=== PATIENT | female | born 1980 | race African-American/Black ===

== ENCOUNTER 2017-03-03 17:15 | Emergency (ER) | payer SELFPAY ==
[~2017-03-03] VITALS: Ht 162.6 cm; Wt 79.4 kg
[2017-03-03 17:38] VITALS: BP 118/60
[2017-03-03 17:43] LABS: BILIRUBIN,URINE NEGATIVE (NEG); GLUCOSE,URINE NEGATIVE (NEG); NITRITE,URINE NEGATIVE (NEG); PH,URINE 8.5; PROTEIN,URINE 30 mg/dL (NEG-TRACE)
--- NOTE | 2017-03-03 17:51 | PHYS DOC ---
Past Medical History Past Medical History: No Pertinent History Past Surgical History: Tubal ligation Alcohol Use: Occasionally Drug Use: None Adult General Chief Complaint Chief Complaint: VAGINAL PROBLEM HPI HPI Patient is a 37 year old female presents to the emergency department with a two -month history of lower abdominal pain with vaginal discharge. She states the vaginal discharge is malodorous. She states the pain was gone progressively worse. She denies fever, nausea, vomiting. She states that she's had spotting in between her last normal menstrual period in today's visit. Review of Systems Review of Systems Constitutional: Denies fever or chills [] Eyes: Denies change in visual acuity, redness, or eye pain [] HENT: Denies nasal congestion or sore throat [] Respiratory: Denies cough or shortness of breath [] Cardiovascular: No additional information not addressed in HPI [] GI: Denies abdominal pain, nausea, vomiting, bloody stools or diarrhea [] : Vaginal discharge Musculoskeletal: Denies back pain or joint pain [] Integument: Denies rash or skin lesions [] Neurologic: Denies headache, focal weakness or sensory changes [] Endocrine: Denies polyuria or polydipsia [] Allergies Allergies Allergies Coded Allergies Type Severity Reaction Last Updated Verified No Known Drug Allergies 08/20/14 No Physical Exam Physical Exam Constitutional: Well developed, well nourished, no acute distress, non-toxic appearance. [] HENT: Normocephalic, atraumatic, bilateral external ears normal, oropharynx moist, no oral exudates, nose normal. [][] Cardiovascular:Heart rate regular rhythm, no murmur [] Lungs & Thorax: Bilateral breath sounds clear to auscultation [] Abdomen: Bowel sounds normal, soft, no tenderness, no masses, no pulsatile masses. : Sternal genitalia within normal limits, small amount of malodorous discharge, cervix without cervicitis, OS closed, no cervical motion tenderness , no adnexal fullness or tenderness. Small amount of [] Skin: Warm, dry, no erythema, no rash. [] Back: No tenderness, no CVA tenderness. [] Extremities: No tenderness, no cyanosis, no clubbing, ROM intact, no edema. [] Neurologic: Alert and oriented X 3, normal motor function, normal sensory function, no focal deficits noted. [] Psychologic: Affect normal, judgement normal, mood normal. [] Current Patient Data Vital Signs Vital Signs Date Time Temp Pulse Resp B/P (MAP) Pulse Ox O2 Delivery O2 Flow Rate FiO2 03/03/17 17:38 98.9 85 18 99 Room Air 98.9 Lab Values Laboratory Tests Test 03/03/17 16:43 03/03/17 17:33 POC Urine HCG, Qualitative Hcg negative (Negative) Urine Collection Type Unknown Urine Color Yellow Urine Clarity Clear Urine pH 8.5 Urine Specific [place] 1.020 Urine Protein 30 mg/dL (NEG-TRACE) Urine Glucose (UA) Negative mg/dL (NEG) Urine Ketones (Stick) Trace mg/dL (NEG) Urine Blood Negative (NEG) Urine Nitrite Negative (NEG) Urine Bilirubin Negative (NEG) Urine Urobilinogen Dipstick 1.0 mg/dL (0.2 mg/dL) Urine Leukocyte Esterase Negative (NEG) Urine RBC 0 /HPF (0-2) Urine WBC 0 /HPF (0-4) Urine Squamous Epithelial Cells Few /LPF Urine Bacteria 0 /HPF (0-FEW) Urine Mucus Mod /LPF EKG EKG [] Radiology/Procedures Radiology/Procedures [] Course & Med Decision Making Course & Med Decision Making Pertinent Labs and Imaging studies reviewed. (See chart for details) [] Dragon Disclaimer Dragon Disclaimer This electronic medical record was generated, in whole or in part, using a voice recognition dictation system. Departure Departure Impression: Primary Impression: Bacterial vaginosis Disposition: HOME, SELF-CARE Condition: STABLE Referrals: NO PCP (PCP) [facility] Patient Instructions: Bacterial Vaginosis Scripts Metronidazole (FLAGYL) 500 Mg Tablet 1 TAB PO BID, #14 TAB Prov: FERMIN RIGGS APRN 03/03/17 FERMIN RIGGS APRN Mar 03, 2017 17:51
[2017-03-03 18:02] LABS: BACTERIA,URINE 0 /HPF (0-FEW); RBC,URINE 0 /HPF (0-2); SQUAMOUS EPITHELIAL CELL,UR FEW /LPF; WBC,URINE 0 /HPF (0-4)
[2017-03-03] MEDS ORDERED: METR500T PO (18:30)
== END 2017-03-03 18:34 | disposition home or self-care (01) ==
LOC: ER 17:15
DX: N76.0 Acute vaginitis (principal); Z98.51 Tubal ligation status
CPT/HCPCS: 81001; 81025; 99283

== ENCOUNTER 2017-11-10 23:02 | Emergency (ER) | payer SELFPAY ==
[2017-11-10 23:32] LABS: URINE HCG POC HCG NEGATIVE (Negative)
[2017-11-11 01:33] LABS: AGAP ISTAT 15 mmol/L (6-14); BUN ISTAT 9 mg/dL (8-26); CHLORIDE ISTAT 103 mmol/L (98-110); CREATININE ISTAT 0.6 mg/dL (0.5-1.4); GLUCOSE ISTAT 97 mg/dL (70-99); HEMATOCRIT ISTAT 36 % (36-40); HEMOGLOBIN ISTAT 12.2 g/dL (12-15); ION CA ISTAT 1.19 mmol/L (1.13-1.32); POTASSIUM ISTAT 3.3 mmol/L (3.5-5.0); SODIUM ISTAT 140 mmol/L (135-145); TOT CO2 ISTAT 27 mmol/L (23-32)
[2017-11-14 15:27] LABS: CHLAMYDIA PROBE Positive (Negative); GC PROBE Negative (Negative)
== END 2017-11-11 01:40 | disposition home or self-care (01) ==
LOC: ER 11-11 01:40
DX: N92.1 Excessive and frequent menstruation with irregular cycle (principal); Z98.51 Tubal ligation status
CPT/HCPCS: 36415; 80047; 81025; 85014; 85018; 87491; 87591; 99284; Q0111

== ENCOUNTER 2018-02-25 13:38 | Emergency (ER) | payer SELFPAY ==
[~2018-02-25] VITALS: Ht 167.6 cm; Wt 83.9 kg
[~2018-02-25 13:38] MED LIST: METR500T PO
[2018-02-25 13:50] VITALS: BP 124/66
--- NOTE | 2018-02-25 14:12 | PHYS DOC ---
Past Medical History Past Medical History: No Pertinent History Past Surgical History: No Surgical History Alcohol Use: None Drug Use: None Adult General Chief Complaint Chief Complaint: ABSCESS HPI HPI Patient is a 38 year old female who presents with an abscess on the left thigh from what she believes are ingrown hairs X1 week. Patient denies any fever. Denies any drainage from the area. Review of Systems Review of Systems Constitutional: Denies fever or chills [] Musculoskeletal: Denies back pain or joint pain [] Integument: Reports an abscess to the left thigh Neurologic: Denies headache, focal weakness or sensory changes [] All other systems were reviewed and found to be within normal limits, except as documented in this note. Current Medications Current Medications Current Medications Medications (Trade) Dose Ordered Sig/Anastacia Start Time Stop Time Status Last Admin Dose Admin Diphtheria/ Tetanus/Acell Pertussis (Boostrix) 0.5 ml ONCE ONCE 02/25/18 14:15 02/25/18 14:16 DC 02/25/18 14:24 0.5 ML Lidocaine/Sodium Bicarbonate (Buffered Lidocaine 1%) 3 ml 1X ONCE 02/25/18 14:15 02/25/18 14:16 DC 02/25/18 14:24 3 ML Allergies Allergies Allergies Coded Allergies Type Severity Reaction Last Updated Verified No Known Drug Allergies 08/20/14 No Physical Exam Physical Exam Constitutional: Well developed, well nourished, no acute distress, non-toxic appearance. [] Skin: Left ventral thigh with an none indurated area approximately 1 x 1 cm with surrounding 3 cm of cellulitis. The area is warm tender to touch and fluctuant in the center. Back: No tenderness, no CVA tenderness. [] Extremities: No tenderness, no cyanosis, no clubbing, ROM intact, no edema. [] Neurologic: Alert and oriented X 3, normal motor function, normal sensory function, no focal deficits noted. [] Psychologic: Affect normal, judgement normal, mood normal. [] Current Patient Data Vital Signs Vital Signs Date Time Temp Pulse Resp B/P (MAP) Pulse Ox O2 Delivery O2 Flow Rate FiO2 02/25/18 13:50 99.0 93 18 124/66 (85) 99 Room Air 99.0 EKG EKG [] Radiology/Procedures Radiology/Procedures Indication: abscess of the left thigh Procedure: The patient was positioned appropriately. Local anesthesia was 1% buffered lidocaine. An incision was then made with an 11 blade over the apex of the lesion and mild amount of yellow bloody material was expressed. The drainage cavity was irrigated and covered with sterile gauze. The patients tetanus status updated as needed. The patient tolerated the procedure well. Complications: none. Course & Med Decision Making Course & Med Decision Making Pertinent Labs and Imaging studies reviewed. (See chart for details) Patient has an abscess with cellulitis on the left ventral thigh. Tetanus was updated. The abscess was drained by me as noted in procedures. Patient was discharged on Bactrim. Provided wound care instructions as well as return precautions. Dragon Disclaimer Dragon Disclaimer This electronic medical record was generated, in whole or in part, using a voice recognition dictation system. Departure Departure Impression: Primary Impression: Abscess or cellulitis of thigh Disposition: 01 HOME, SELF-CARE Condition: STABLE Referrals: NO PCP (PCP) follow up with your doctor in one week Patient Instructions: Abscess, Cellulitis, [id number] Additional Instructions: You were seen for an abscess with cellulitis on your left thigh. Please complete your antibiotics. Apply warm compresses to the area twice a day. Follow -up with your doctor in 1-2 weeks. Scripts Tramadol Hcl (TRAMADOL HCL) 50 Mg Tablet 50 MG PO Q6HRS PRN for PAIN, #20 TAB Prov: GABBY PRASAD APRN 02/25/18 Sulfamethoxazole/Trimethoprim (BACTRIM DS TABLET) 1 Each Tablet 1 TAB PO BID, #20 TAB Prov: GABBY PRASAD APRN 02/25/18 GABBY PRASAD APRN Feb 25, 2018 14:12
[2018-02-25] MEDS ORDERED: LIDOCAINE WITH 8.4% SOD BICARB 3 ML DISP.SYRIN. INJ ONE (14:15)
[2018-02-25] MEDS ORDERED: DIPHTH,PERTUSS(ACELL),TET TOX 0.5 ML DISP.SYRIN. VAX IM ONE (14:15)
[2018-02-25] MEDS ORDERED: SULF1TAB24 PO (14:30)
[2018-02-25] MEDS ORDERED: TRAM50TA PO (14:30)
== END 2018-02-25 14:47 | disposition home or self-care (01) ==
LOC: ER 13:38
DX: L02.416 Cutaneous abscess of left lower limb (principal); L03.116 Cellulitis of left lower limb
CPT/HCPCS: 10060; 90471; 90715; 99283

== ENCOUNTER 2021-02-02 10:52 | Emergency (ER) | payer MEDICAID ==
[~2021-02-02] VITALS: Ht 162.6 cm; Wt 69.1 kg
[~2021-02-02 10:52] MED LIST changes: +SULF1TAB24 PO; +TRAM50TA PO
[2021-02-02] MEDS ORDERED: methylPREDNISolone SOD SUCC PF 125 MG/2 ML VIAL. IV ONE (11:30)
[2021-02-02] MEDS ORDERED: KETOROLAC 30 MG/ML VIAL. IVP ONE (11:30)
[2021-02-02] MEDS ORDERED: IV NORMAL SALINE 1000ML BAG 1,000 ML IV ONE (11:30)
[2021-02-02] MEDS ORDERED: ONDANSETRON PF 4 MG/2 ML VIAL. IVP ONE (11:30)
[2021-02-02 11:37] LABS: BASO % 1 % (0-3); EOS # 0.8 x10^3/uL (0.0-0.7); EOS % 17 % (0-3); HEMATOCRIT 41.6 % (36.0-47.0); HEMOGLOBIN 13.6 g/dL (12.0-15.5); LYMPH # 1.6 x10^3/uL (1.0-4.8); LYMPH % 32 % (24-48); MEAN CORPUSCULAR HEMOGLOBIN 26 pg (25-35); MEAN CORPUSCULAR HGB CONC 33 g/dL (31-37); MEAN CORPUSCULAR VOLUME 80 fL (79-100); MONO # 0.2 x10^3/uL (0.0-1.1); MONO % 5 % (0-9); NEUT # 2.4 x10^3/uL (1.8-7.7); NEUT % 47 % (31-73); PLATELET COUNT 142 x10^3/uL (140-400); RED BLOOD COUNT 5.17 x10^6/uL (3.50-5.40); RED CELL DISTRIBUTION WIDTH 12.3 % (11.5-14.5); WHITE BLOOD COUNT 5.1 x10^3/uL (4.0-11.0)
[2021-02-02 12:33] LABS: CALCIUM 8.9 mg/dL (8.5-10.1); CREATININE 0.7 mg/dL (0.6-1.0); GFR 111.6
[2021-02-02 12:39] LABS: ALBUMIN 3.6 g/dL (3.4-5.0); TOTAL BILIRUBIN 0.4 mg/dL (0.2-1.0); TOTAL PROTEIN 7.2 g/dL (6.4-8.2)
[2021-02-02 13:24] LABS: BILIRUBIN,URINE NEGATIVE (NEG); CLARITY,URINE CLEAR; COLOR,URINE YELLOW; NITRITE,URINE NEGATIVE (NEG); PROTEIN,URINE NEGATIVE (NEG-TRACE); UROBILINOGEN,URINE 0.2 mg/dL (0.2 mg/dL)
[2021-02-02 13:31] LABS: BARBITURATES NEG (NEG); BENZODIAZEPINES NEG (NEG); CANNABINOIDS NEG (NEG); COCAINE NEG (NEG); METHADONE NEG (NEG); OPIATES NEG (NEG); PHENCYCLIDINE NEG (NEG)
[2021-02-02 13:32] LABS: AMPHETAMINE/METHAMPHETAMINE NEG (NEG)
[2021-02-02 13:47] LABS: BACTERIA,URINE 0 /HPF (0-FEW); RBC,URINE 0 /HPF (0-2)
[2021-02-02] MEDS ORDERED: SUMA50TA3 PO (14:15)
--- NOTE | 2021-02-02 14:15 | PHYS DOC ---
Past Medical History Past Medical History: No Pertinent History Additional Past Medical Histor: "LOW BLOOD COUNT", FIBROIDS Past Surgical History: Tubal ligation Smoking Status: Never Smoker Alcohol Use: None Drug Use: None General Adult EDM: Chief Complaint: HEADACHE HPI: HPI: Patient is a 41 year old female who presents to the ED today complaining of 5 out of 10 right-sided headache radiating to her neck and back of the head as well as right ear, symptoms began 1-1/2 weeks ago. Patient describes the pain as throbbing and intermittent. States activities exacerbates the pain. Denies any nausea, vomiting. She states she has been running a low "blood count". She states this is due to fibroids and the [employer] MANAGER started her on Depo shots with Lupron. Patient denies any bleeding right now. Denies this being the worst headache in her life. Denies anything specifically relieving the headache. Review of Systems: Review of Systems: Constitutional: Denies fever or chills. [] Eyes: Denies change in visual acuity. [] HENT: Denies nasal congestion or sore throat. [] Respiratory: Denies cough or shortness of breath. [] Cardiovascular: Denies chest pain or edema. [] GI: Denies abdominal pain, nausea, vomiting, bloody stools or diarrhea. [] : Denies dysuria. [] Musculoskeletal: Denies back pain or joint pain. [] Integument: Denies rash. [] Neurologic: Reports headache, denies focal weakness or sensory changes. [] ] Psychiatric: Denies depression or anxiety. [] Heart Score: C/O Chest Pain: N/A Risk Factors: Risk Factors: DM, Current or recent (<one month) smoker, HTN, HLP, family history of CAD, obesity. Risk Scores: Score 0 - 3: 2.5% MACE over next 6 weeks - Discharge Home Score 4 - 6: 20.3% MACE over next 6 weeks - Admit for Clinical Observation Score 7 - 10: 72.7% MACE over next 6 weeks - Early Invasive Strategies Current Medications: Current Medications Medications (Trade) Dose Ordered Sig/Anastacia Start Time Stop Time Status Last Admin Dose Admin Ketorolac Tromethamine (Toradol 30mg Vial) 30 mg 1X ONCE 02/02/21 11:30 02/02/21 11:31 DC 02/02/21 11:39 30 MG Methylprednisolone Sodium Succinate (SOLU-Medrol 125MG VIAL) 125 mg 1X ONCE 02/02/21 11:30 02/02/21 11:31 DC 02/02/21 11:38 125 MG Ondansetron HCl (Zofran) 4 mg 1X ONCE 02/02/21 11:30 02/02/21 11:31 DC 02/02/21 11:39 4 MG Sodium Chloride 1,000 ml @ 1,000 mls/hr 1X ONCE 02/02/21 11:30 02/02/21 12:29 DC 02/02/21 11:38 1,000 MLS/HR Allergies: Allergies: Allergies Coded Allergies Type Severity Reaction Last Updated Verified No Known Drug Allergies 10/29/20 No Physical Exam: PE: Constitutional: Well developed, well nourished, no acute distress, non-toxic appearance. [] HENT: Normocephalic, atraumatic, bilateral external ears normal, oropharynx moist, no oral exudates, nose normal. [] Eyes: PERRLA, EOMI, conjunctiva normal, no discharge. [] Neck: Normal range of motion, no tenderness, supple, no stridor. [] Cardiovascular:Heart rate regular rhythm, no murmur [] Lungs & Thorax: Bilateral breath sounds clear to auscultation [] Abdomen: Bowel sounds normal, soft, no tenderness, no masses, no pulsatile masses. [] Skin: Warm, dry, no erythema, no rash. [] Back: No tenderness, no CVA tenderness. [] Extremities: No tenderness, no cyanosis, no clubbing, ROM intact, no edema. [] Neurologic: Alert and oriented X 3, normal motor function, normal sensory function, no focal deficits noted. Cranial nerves II through XII intact Psychologic: Affect normal, judgement normal, mood normal. [] Current Patient Data: Labs: Laboratory Tests Test 02/02/21 11:27 02/02/21 12:07 02/02/21 13:00 White Blood Count 5.1 x10^3/uL (4.0-11.0) Red Blood Count 5.17 x10^6/uL (3.50-5.40) Hemoglobin 13.6 g/dL (12.0-15.5) Hematocrit 41.6 % (36.0-47.0) Mean Corpuscular Volume 80 fL (79-100) Mean Corpuscular Hemoglobin 26 pg (25-35) Mean Corpuscular Hemoglobin Concent 33 g/dL (31-37) Red Cell Distribution Width 12.3 % (11.5-14.5) Platelet Count 142 x10^3/uL (140-400) Neutrophils (%) (Auto) 47 % (31-73) Lymphocytes (%) (Auto) 32 % (24-48) Monocytes (%) (Auto) 5 % (0-9) Eosinophils (%) (Auto) 17 % (0-3) H Basophils (%) (Auto) 1 % (0-3) Neutrophils # (Auto) 2.4 x10^3/uL (1.8-7.7) Lymphocytes # (Auto) 1.6 x10^3/uL (1.0-4.8) Monocytes # (Auto) 0.2 x10^3/uL (0.0-1.1) Eosinophils # (Auto) 0.8 x10^3/uL (0.0-0.7) H Basophils # (Auto) 0.0 x10^3/uL (0.0-0.2) Ethyl Alcohol Level < 10 mg/dL (0-10) Sodium Level 143 mmol/L (136-145) Potassium Level 4.0 mmol/L (3.5-5.1) Chloride Level 108 mmol/L (98-107) H Carbon Dioxide Level 29 mmol/L (21-32) Anion Gap 6 (6-14) Blood Urea Nitrogen 10 mg/dL (7-20) Creatinine 0.7 mg/dL (0.6-1.0) Estimated GFR (Cockcroft-Gault) 111.6 BUN/Creatinine Ratio 14 (6-20) Glucose Level 96 mg/dL (70-99) Calcium Level 8.9 mg/dL (8.5-10.1) Total Bilirubin 0.4 mg/dL (0.2-1.0) Aspartate Amino Transferase (AST) 20 U/L (15-37) Alanine Aminotransferase (ALT) 33 U/L (14-59) Alkaline Phosphatase 76 U/L (46-116) Total Protein 7.2 g/dL (6.4-8.2) Albumin 3.6 g/dL (3.4-5.0) Albumin/Globulin Ratio 1.0 (1.0-1.7) Urine Collection Type Void Urine Color Yellow Urine Clarity Clear Urine pH 7.0 (<5.0-8.0) Urine Specific [place] <=1.005 (1.000-1.030) Urine Protein Negative mg/dL (NEG-TRACE) Urine Glucose (UA) Negative mg/dL (NEG) Urine Ketones (Stick) Negative mg/dL (NEG) Urine Blood Negative (NEG) Urine Nitrite Negative (NEG) Urine Bilirubin Negative (NEG) Urine Urobilinogen Dipstick 0.2 mg/dL (0.2 mg/dL) Urine Leukocyte Esterase Trace (NEG) Urine RBC 0 /HPF (0-2) Urine WBC 1-4 /HPF (0-4) Urine Squamous Epithelial Cells Few /LPF Urine Bacteria 0 /HPF (0-FEW) Urine Opiates Screen Neg (NEG) Urine Methadone Screen Neg (NEG) Urine Barbiturates Neg (NEG) Urine Phencyclidine Screen Neg (NEG) Urine Amphetamine/Methamphetamine Neg (NEG) Urine Benzodiazepines Screen Neg (NEG) Urine Cocaine Screen Neg (NEG) Urine Cannabinoids Screen Neg (NEG) Urine Ethyl Alcohol Neg (NEG) Laboratory Tests 02/02/21 11:27 Laboratory Tests 02/02/21 12:07 Vital Signs: Vital Signs Date Time Temp Pulse Resp B/P (MAP) Pulse Ox O2 Delivery O2 Flow Rate FiO2 02/02/21 11:10 98.0 68 16 133/68 (85) 100 Room Air 98.0 EKG: EKG: [] Radiology/Procedures: Radiology/Procedures: [] Course & Med Decision Making: Course & Med Decision Making Pertinent Labs and Imaging studies reviewed. (See chart for details) This is a 41-year-old female patient presenting to the ED today complaining of a headache intermittently for 1-1/2 weeks. Also complaining of low blood counts due to fibroids. CBC was done, hemoglobin and hematocrit are negative. CMP with no acute findings. Patient was treated for her headache including getting a liter of fluid. She states she feels way better. Discharge to home. Follow- up with PCP next week Debra Disclaimer: Debra Disclaimer: This electronic medical record was generated, in whole or in part, using a voice recognition dictation system. Departure Departure Impression: Primary Impression: Headache Qualified Codes: R51.9 - Headache, unspecified Disposition: HOME / SELF CARE / HOMELESS Condition: STABLE Referrals: UNKNOWN PCP NAME (PCP) follow up in 1 week with your doctor Patient Instructions: Headache, FAQs Additional Instructions: You were seen in the emergency room for a headache. Take the prescribed medications as ordered. Please follow-up with your primary care doctor next week Scripts Sumatriptan Succinate (IMITREX) 50 Mg Tablet 1 TAB PO UD, #9 TAB 1 Refill Take 1 tablet at the onset of the headache, repeat in 2 hours if pain persist. Do not take more than 2 tablets in 24 hours Prov: GABBY PRASAD APRN 02/02/21 GABBY PRASAD APRN Feb 02, 2021 14:15
[2021-02-02 14:44] VITALS: BP 114/68
== END 2021-02-02 14:48 | disposition home or self-care (01) ==
LOC: ER 10:52
DX: R51.9 Headache, unspecified (principal)
CPT/HCPCS: 36415; 80053; 80307; 81001; 85025; 87086; 96361; 96374; 96375; 99285; G0480; J1885; J2405; J2930; J7030

== ENCOUNTER 2021-06-09 12:39 | Emergency (ER) | payer MEDICAID ==
[~2021-06-09] VITALS: Ht 162.6 cm; Wt 74.1 kg
[~2021-06-09 12:39] MED LIST changes: +SUMA50TA3 PO
--- NOTE | 2021-06-09 13:38 | PHYS DOC ---
Past Medical History Past Medical History: No Pertinent History Additional Past Medical Histor: "LOW BLOOD COUNT", FIBROIDS Past Surgical History: Tubal ligation Smoking Status: Never Smoker Alcohol Use: None Drug Use: None General Adult EDM: Chief Complaint: LOWER BACK PAIN OR INJURY HPI: HPI: Patient is a 41 year old female who presents with Tuesday she states that she was brushing her teeth and got her gag reflex and she jerked forward and somehow and pulled her lower back. She states she has sharp shooting pain in her left lower back that wraps around into her hip. She states that she just cannot be on her feet very long. She denies loss of bowel bladder, numbness or tingling, focal weakness, swelling, falling to the ground. She rates her pain at this time a 7 out of 10. She states she is been taking Aleve at home. Review of Systems: Review of Systems: Constitutional: Denies fever or chills. [] Eyes: Denies change in visual acuity. [] HENT: Denies nasal congestion or sore throat. [] Respiratory: Denies cough or shortness of breath. [] Cardiovascular: Denies chest pain or edema. [] GI: Denies abdominal pain, nausea, vomiting, bloody stools or diarrhea. [] : Denies dysuria. [] Musculoskeletal: +Left back pain or joint pain. [] Integument: Denies rash. [] Neurologic: Denies headache, focal weakness or sensory changes. [] Endocrine: Denies polyuria or polydipsia. [] Lymphatic: Denies swollen glands. [] Psychiatric: Denies depression or anxiety. [] Heart Score: C/O Chest Pain: No Allergies: Allergies: Allergies Coded Allergies Type Severity Reaction Last Updated Verified No Known Drug Allergies 10/29/20 No Physical Exam: PE: Constitutional: Well developed, well nourished, no acute distress, non-toxic appearance. [] HENT: Normocephalic, atraumatic, bilateral external ears normal, oropharynx sh[address], no oral exudates, nose normal. [] Eyes: PERRLA, EOMI, conjunctiva normal, no discharge. [] Neck: Normal range of motion, no tenderness, supple, no stridor. [] Cardiovascular:Heart rate regular rhythm, no murmur [] Lungs & Thorax: Bilateral breath sounds clear to auscultation [] Abdomen: Bowel sounds normal, soft, no tenderness, no masses, no pulsatile masses. [] Skin: Warm, dry, no erythema, no rash. [] Back: No tenderness, no CVA tenderness. [] Extremities: No tenderness, no cyanosis, no clubbing, ROM intact, no edema. [] Neurologic: Alert and oriented X 3, normal motor function, normal sensory function, no focal deficits noted. [] Psychologic: Affect normal, judgement normal, mood normal. [] Normal physical exam Current Patient Data: Vital Signs: Vital Signs Date Time Temp Pulse Resp B/P (MAP) Pulse Ox O2 Delivery O2 Flow Rate FiO2 06/09/21 12:55 99.2 69 16 108/55 (72) 100 Room Air 99.2 EKG: EKG: [] Radiology/Procedures: Radiology/Procedures: [] Impression: [facility] [address] [place], [place] [id number] IMAGING REPORT Signed PATIENT: ERICKA RANDHAWA CACCOUNT: [id number] : 1980 LOCATION: ER AGE: 41 SEX: F EXAM STATUS: REG ER ORD. PHYSICIAN: JAMI TAM APRN REASON: left sided sharp shooting pain PROCEDURE: CT LUMBAR SPINE WO CONTRAST CT lumbar spine without contrast 06/09/2021 INDICATION: Shooting pain. COMPARISON STUDY: None. TECHNIQUE: CT imaging of the lumbar spine was performed without contrast. FINDINGS: There is no evidence of acute fracture or alignment following. Vertebral body heights are maintained. Facet joints remain aligned. No evidence of spondylolysis or significant spondylolisthesis is identified. No prominent disc bulges or overt neural foraminal narrowing is identified. IMPRESSION: No evidence of acute osseous abnormality involving the lumbar spine CT DOSING PQRS STATEMENT: One or more of the following individualized dose reduction techniques were utilized for this examination: 1. Automated exposure control 2. Adjustment of the mA and/or kV according to patient size 3. Use of iterative reconstruction technique Electronically signed by: Jacinto Baum MD (06/09/2021 1:56 PM) [id number] DICTATED and SIGNED BY: JACINTO BAUM MD DATE: 06/09/21 [id number] Course & Med Decision Making: Course & Med Decision Making Pertinent Labs and Imaging studies reviewed. (See chart for details) See HPI. Alert and oriented x4. Ambulatory with steady gait. Speaks in full clear sentences. No focal bony spinal tenderness. No tenderness to her back or her. No bruising or trauma or swelling or redness to any joints. No saddle paresthesia. Denies burning with urination. No swelling to the extremity. Skin pink warm and dry. Afebrile. [] Dragon Disclaimer: [place] Disclaimer: This electronic medical record was generated, in whole or in part, using a voice recognition dictation system. Departure Departure Impression: Primary Impression: Back pain Qualified Codes: M54.42 - Lumbago with sciatica, left side Disposition: HOME / SELF CARE / HOMELESS Condition: STABLE Referrals: UNKNOWN PCP NAME (PCP) Patient Instructions: Low Back Strain with [facility], Sciatica with [facility] Additional Instructions: Follow up with primary care provider. Use heating pad. Continue taking aleve. Rest. Take medication as prescribed and remember muscle relaxers will make you sleepy, so you should not drive, drink alcohol, or work heavy machinery on this medication. Scripts Cyclobenzaprine Hcl (CYCLOBENZAPRINE HCL) 5 Mg Tablet 1 TAB PO TID, #15 TAB Prov: JAMI TAM APRN 06/09/21 JAMI TAM APRN Jun 09, 2021 13:38
--- NOTE | 2021-06-09 13:59 | RAD ---
CT lumbar spine without contrast 06/09/2021 INDICATION: Shooting pain. COMPARISON STUDY: None. TECHNIQUE: CT imaging of the lumbar spine was performed without contrast. FINDINGS: There is no evidence of acute fracture or alignment following. Vertebral body heights are m aintained. Facet joints remain aligned. No evidence of spondylolysis or significant spondylolisthesis is identified. No prominent disc bulges or overt neural foraminal narrowing is identified. IMPRESSION: No evidence of acute osseous abnormality involving the lumbar spine CT DOSING PQRS STATEMENT: One or more of the following individualized dose reduction techniques were utilized for this examinat ion: 1. Automated exposure control 2. Adjustment of the mA and/or kV according to patient size 3. Use of iterative reconstruction technique Electronically signed by: Jacinto Leone MD (06/09/2021 1:56 PM) [id number]
[2021-06-09 14:18] LABS: BILIRUBIN,URINE NEGATIVE (NEG); CLARITY,URINE CLEAR; COLOR,URINE YELLOW; NITRITE,URINE NEGATIVE (NEG); PH,URINE 5.5 (<5.0-8.0); PROTEIN,URINE NEGATIVE (NEG-TRACE); UROBILINOGEN,URINE 0.2 mg/dL (0.2 mg/dL)
[2021-06-09 14:25] LABS: BACTERIA,URINE 0 /HPF (0-FEW)
[2021-06-09 14:26] LABS: RBC,URINE 0 /HPF (0-2); WBC,URINE 0 /HPF (0-4)
[2021-06-09] MEDS ORDERED: CYCL5TAB PO (14:34)
[2021-06-09 14:45] VITALS: BP 116/60
[2021-06-09] MEDS ORDERED: DEXAMETHASONE 4 MG TABLET PO ONE (14:45)
== END 2021-06-09 14:45 | disposition home or self-care (01) ==
LOC: ER 12:39
DX: M54.42 Lumbago with sciatica, left side (principal)
CPT/HCPCS: 72131; 81001; 81025; 87086; 99284-25

== ENCOUNTER 2021-08-27 10:17 | Emergency (ER) | payer MEDICAID ==
[~2021-08-27] VITALS: Ht 162.6 cm; Wt 72.4 kg
[~2021-08-27 10:17] MED LIST changes: +CYCL5TAB PO
[2021-08-27] MEDS ORDERED: LIDOCAINE 1% PF 2 ML VIAL. ONE (11:06)
[2021-08-27 11:21] LABS: BILIRUBIN,URINE NEGATIVE (NEG); CLARITY,URINE CLEAR; COLOR,URINE YELLOW; NITRITE,URINE NEGATIVE (NEG); PH,URINE 6.5 (<5.0-8.0); PROTEIN,URINE NEGATIVE (NEG-TRACE); UROBILINOGEN,URINE 0.2 mg/dL (0.2 mg/dL)
[2021-08-27] MEDS ORDERED: metroNIDAZOLE 500 MG TABLET PO ONE (11:30)
[2021-08-27] MEDS ORDERED: DOXYCYCLINE HYCLATE 100 MG TABLET PO ONE (11:30)
[2021-08-27] MEDS ORDERED: cefTRIAXone IM 500 MG VIAL. IM ONE (11:30)
[2021-08-27 11:34] LABS: BACTERIA,URINE 0 /HPF (0-FEW); RBC,URINE 0 /HPF (0-2); WBC,URINE OCC /HPF (0-4)
[2021-08-27] MEDS ORDERED: SULF1TAB23 PO (11:46)
[2021-08-27] MEDS ORDERED: FLUC150T PO (11:46)
[2021-08-27] MEDS ORDERED: METR-34 PO (11:46)
[2021-08-27] MEDS ORDERED: DOXY100T PO (11:46)
--- NOTE | 2021-08-27 11:47 | PHYS DOC ---
Past Medical History Past Medical History: No Pertinent History Additional Past Medical Histor: "LOW BLOOD COUNT", FIBROIDS Past Surgical History: Tubal ligation Smoking Status: Never Smoker Alcohol Use: None Drug Use: None General Adult EDM: Chief Complaint: VAGINAL PROBLEM HPI: HPI: Patient is a 41 year old female who presents the ED today with vaginal itching and discharge, symptoms began a week ago. Patient reports she has a new sex partner although she states she also has another "steady" old partner. She states she is concerned about STDs and would like to be tested and treated. Review of Systems: Review of Systems: Constitutional: Denies fever or chills. [] GI: Reports vaginal discharge, denies abdominal pain, nausea, vomiting, bloody stools or diarrhea. [] : Denies dysuria. [] Musculoskeletal: Denies back pain or joint pain. [] Integument: Denies rash. [] Neurologic: Denies headache, focal weakness or sensory changes. [] Psychiatric: Denies depression or anxiety. [] Heart Score: C/O Chest Pain: N/A Risk Factors: Risk Factors: DM, Current or recent (<one month) smoker, HTN, HLP, family history of CAD, obesity. Risk Scores: Score 0 - 3: 2.5% MACE over next 6 weeks - Discharge Home Score 4 - 6: 20.3% MACE over next 6 weeks - Admit for Clinical Observation Score 7 - 10: 72.7% MACE over next 6 weeks - Early Invasive Strategies Current Medications: Current Medications Medications (Trade) Dose Ordered Sig/Anastacia Start Time Stop Time Status Last Admin Dose Admin Ceftriaxone Sodium (Rocephin Im) 500 mg 1X ONCE 08/27/21 11:30 08/27/21 11:31 DC 08/27/21 11:13 500 MG Doxycycline Hyclate (Vibra-Tab) 100 mg 1X ONCE 08/27/21 11:30 08/27/21 11:31 DC 08/27/21 11:15 100 MG Lidocaine HCl (Xylocaine-Mpf 1% 2ml Vial) 2 ml STK-MED ONCE 08/27/21 11:06 08/27/21 11:07 DC Metronidazole (Flagyl) 2,000 mg 1X ONCE 08/27/21 11:30 08/27/21 11:31 DC 08/27/21 11:15 2,000 MG Allergies: Allergies: Allergies Coded Allergies Type Severity Reaction Last Updated Verified No Known Drug Allergies 10/29/20 No Physical Exam: PE: Constitutional: Well developed, well nourished, no acute distress, non-toxic alex earance. [] Abdomen: Bowel sounds normal, soft, no tenderness, no masses, no pulsatile masses. [] Pelvic exam External pelvic appears normal, cervix closed, no CMT, no adnexal tenderness, small amount of white discharge in the vaginal vault Skin: Warm, dry, no erythema, no rash. [] Back: No tenderness, no CVA tenderness. [] Extremities: No tenderness, no cyanosis, no clubbing, ROM intact, no edema. [] Neurologic: Alert and oriented X 3, normal motor function, normal sensory function, no focal deficits noted. [] Psychologic: Affect normal, judgement normal, mood normal. [] Current Patient Data: Labs: Laboratory Tests Test 08/27/21 10:45 Urine Collection Type Void Urine Color Yellow Urine Clarity Clear Urine pH 6.5 (<5.0-8.0) Urine Specific [place] 1.015 (1.000-1.030) Urine Protein Negative mg/dL (NEG-TRACE) Urine Glucose (UA) Negative mg/dL (NEG) Urine Ketones (Stick) Negative mg/dL (NEG) Urine Blood Negative (NEG) Urine Nitrite Negative (NEG) Urine Bilirubin Negative (NEG) Urine Urobilinogen Dipstick 0.2 mg/dL (0.2 mg/dL) Urine Leukocyte Esterase Small (NEG) Urine RBC 0 /HPF (0-2) Urine WBC Occ /HPF (0-4) Urine Squamous Epithelial Cells Few /LPF Urine Bacteria 0 /HPF (0-FEW) Urine Mucus Slight /LPF POC Urine HCG, Qualitative Hcg negative (Negative) Microbiology 08/27/21 Wet Prep - Final, Complete Vital Signs: Vital Signs Date Time Temp Pulse Resp B/P (MAP) Pulse Ox O2 Delivery O2 Flow Rate FiO2 08/27/21 10:38 98.3 75 20 112/54 (73) 100 Room Air 98.3 EKG: EKG: [] Radiology/Procedures: Radiology/Procedures: [] Course & Med Decision Making: Course & Med Decision Making Pertinent Labs and Imaging studies reviewed. (See chart for details) This is a 41-year-old female patient presented to the ED today complaining of vaginal discharge, itching, symptoms for a week, concern for STDs. Negative urine hCG, UA positive for UTI-d/c on Bactrim for three days. Treated prophylaxis for STDs in the ED and discharged on doxycycline Wet prep positive for BV. Discharged on Flagyl. D/c with fluconazole for yeast infection. F/u with OB or PCP in one week Debra Disclaimer: Debra Disclaimer: This electronic medical record was generated, in whole or in part, using a voice recognition dictation system. Departure Departure Impression: Primary Impression: Urinary tract infection Qualified Codes: N39.0 - Urinary tract infection, site not specified Additional Impressions: Bacterial vaginosis Concern about STD in female without diagnosis Disposition: HOME / SELF CARE / HOMELESS Condition: STABLE Referrals: NO PCP (PCP) Follow-up with the health department or the provided BIOLOGY SPECIALIST in 1 week GERMANIA MALLOY MD Patient Instructions: Bacterial Vaginosis, Sexually Transmitted Disease, [id number], Urinary Tract Infection Additional Instructions: You were treated prophylaxis for STDs. Please take the prescribed medications as ordered. You also have a UTI, and bacterial vaginosis, we put you on antibiotics. Take all this medicines as ordered. You may end up with a yeast infection from this antibiotics. We highly encourage you to take probiotics or yogurt. We also put you on fluconazole prophylaxis to help reduce the chance of getting a yeast infection Scripts Fluconazole (DIFLUCAN) 150 Mg Tablet 1 TAB PO ONCE, #1 TAB 1 Refill Take 1 tablet today and repeat in 7 days Prov: GABBY PRASAD APRN 08/27/21 Metronidazole (METRONIDAZOLE) 500 Mg Tablet 1 TAB PO BID, #10 TAB 0 Refills Prov: GABBY PRASAD APRN 08/27/21 Sulfamethoxazole/Trimethoprim (BACTRIM 400-80 MG TABLET) 1 Each Tablet 1 TAB PO BID for 3 Days, #6 TAB 0 Refills Prov: GABBY PRASAD APRN 08/27/21 Doxycycline Hyclate (DOXYCYCLINE HYCLATE) 100 Mg Tablet 1 TAB PO BID, #14 TAB Prov: GABBY PRASAD APRN 08/27/21 GABBY PRASAD APRN Aug 27, 2021 11:47
[2021-08-27 11:54] VITALS: BP 114/54
[2021-08-28 18:10] LABS: GC PROBE Negative (Negative)
== END 2021-08-27 11:54 | disposition home or self-care (01) ==
LOC: ER 10:17
DX: N39.0 Urinary tract infection, site not specified (principal); N76.0 Acute vaginitis; B96.89 Other specified bacterial agents as the cause of diseases classified elsewhere; Z20.2 Contact with and (suspected) exposure to infections with a predominantly sexual mode of transmission; Z98.51 Tubal ligation status
CPT/HCPCS: 81001; 81025; 87086; 87491; 87591; 96372; 99284; J0696; Q0111

== ENCOUNTER → 2021-10-29 | Outpatient (CLI) | payer MEDICAID ==
[~2021-10-29] MED LIST changes: +DOXY100T PO; +FLUC150T PO; +MEDR10TA3 PO; +METR-34 PO; +SULF1TAB23 PO
[2021-10-29 14:49] LABS: BASO % 1 % (0-3); EOS # 0.1 x10^3/uL (0.0-0.7); EOS % 3 % (0-3); HEMATOCRIT 39.8 % (36.0-47.0); HEMOGLOBIN 12.9 g/dL (12.0-15.5); LYMPH # 1.5 x10^3/uL (1.0-4.8); LYMPH % 36 % (24-48); MEAN CORPUSCULAR HEMOGLOBIN 26 pg (25-35); MEAN CORPUSCULAR HGB CONC 33 g/dL (31-37); MEAN CORPUSCULAR VOLUME 80 fL (79-100); MONO # 0.2 x10^3/uL (0.0-1.1); MONO % 6 % (0-9); NEUT # 2.3 x10^3/uL (1.8-7.7); NEUT % 55 % (31-73); PLATELET COUNT 146 x10^3/uL (140-400); RED CELL DISTRIBUTION WIDTH 13.8 % (11.5-14.5); WHITE BLOOD COUNT 4.2 x10^3/uL (4.0-11.0)
[2021-10-29 15:04] LABS: ALBUMIN 3.9 g/dL (3.4-5.0); ALBUMIN/GLOBULIN RATIO 1.1 (1.0-1.7); CALCIUM 8.4 mg/dL (8.5-10.1); CREATININE 0.7 mg/dL (0.6-1.0); GFR 111.6; POTASSIUM 3.4 mmol/L (3.5-5.1); TOTAL BILIRUBIN 0.9 mg/dL (0.2-1.0); TOTAL PROTEIN 7.6 g/dL (6.4-8.2)
[2021-10-29 15:07] LABS: RBC,URINE 0 /HPF (0-2); WBC,URINE OCC /HPF (0-4)
[2021-10-29 15:08] LABS: BACTERIA,URINE FEW /HPF (0-FEW)
== END ==
LOC: SURGPAT 13:46
PROVIDERS: ATTEND Obstetrics & Gynecology
DX: Z01.818 Encounter for other preprocedural examination (principal); Z90.710 Acquired absence of both cervix and uterus
CPT/HCPCS: 36415; 80053; 81001; 85025

== ENCOUNTER → 2021-11-02 | Outpatient (CLI) | payer MEDICAID | LOC: LAB 12:11 | PROVIDERS: ATTEND Obstetrics & Gynecology | DX: R07.9 Chest pain, unspecified (principal); Z20.822 Contact with and (suspected) exposure to COVID-19; I10 Essential (primary) hypertension | CPT/HCPCS: U0003 ==

== ENCOUNTER 2021-11-04 05:50 | Observation (INO) | payer MEDICAID ==
[2021-11-04] VITALS (13 sets, daily range): BP systolic 87–110; BP diastolic 47–60
[~2021-11-04] VITALS: Ht 162.6 cm; Wt 70.0 kg
[2021-11-04] MEDS: IV RINGERS,LACTATED 1000ML 1,000 ML IV SCH ×3 (06:23→12:46)
[2021-11-04] MEDS ORDERED: fentaNYL PF VIAL 100 MCG/2 ML VIAL ONE ×2 (07:02→10:43)
[2021-11-04] MEDS ORDERED: PROPOFOL 10 MG/ML (20ML) VIAL. IV ONE (07:02)
[2021-11-04] MEDS ORDERED: LIDOCAINE 2% PF 5 ML VIAL. ONE (07:02)
[2021-11-04] MEDS ORDERED: ONDANSETRON PF 4 MG/2 ML VIAL. ONE (07:02)
[2021-11-04] MEDS ORDERED: ROCURONIUM 50 MG/5 ML VIAL. ONE (07:02)
[2021-11-04] MEDS ORDERED: DEXAMETHASONE SOD PHOS 4 MG/ML VIAL ONE (07:02)
[2021-11-04] MEDS ORDERED: ESTROGENS, CONJ VAGINAL CREAM 30GM TUBE. ONE (07:08)
[2021-11-04] MEDS ORDERED: BUPIVACAINE-EPI 0.25% 30 ML VIAL KIT. ONE (07:08)
[2021-11-04] MEDS ORDERED: MIDAZOLAM HCL/PF 2 MG/2 ML VIAL. ONE (07:08)
[2021-11-04] MEDS ORDERED: INDIGOTINDISULFONATE SODIUM 40 MG/5 ML AMPUL. ONE (07:10)
[2021-11-04] MEDS ORDERED: PHENYLEPHRINE in 0.9% NACL PF 1 MG/10 ML SYRINGE. IV ONE (08:07)
[2021-11-04] MEDS ORDERED: NEOSTIGMINE METHYLSULFATE 5 MG/5 ML SYRINGE. ONE (08:55)
[2021-11-04] MEDS ORDERED: GLYCOPYRROLATE 1 MG/5 ML VIAL. ONE (08:55)
[2021-11-04] MEDS ORDERED: KETOROLAC 30 MG/ML VIAL. ONE (08:56)
[2021-11-04] MEDS ORDERED: HYDROmorphone 2 MG/ML INJ. ONE (09:57)
--- NOTE | 2021-11-04 10:27 | PDOC4 ---
BRIEF OPERATIVE NOTE Date: Nov 04, 2021 Pre-Op Diagnosis enlarged fibroid uterus, menorrhagia Post-Op Diagnosis same Procedure Performed LAVH/bilateral salpingectomy Surgeon Dr. Luisa Urbano Shaper Setter LOIS Noe Anesthesiologist Dr. Argueta Anesthesia Type: General Blood Loss 160cc IV Fluid 1200cc Urine Output 500cc clear via valdez Specimens Obtained cervix/uterus with bilateral tubes Findings enlarged fibroid uterus, normal bilateral tubes and ovaries, normal appendix, grossly normal RUQ Complications none Operative Note [id number] LUISA URBANO MD Nov 04, 2021 10:27
[2021-11-04] MEDS ORDERED: SIMETHICONE 80 MG TAB.CHEW PO PRN (10:30)
[2021-11-04] MEDS ORDERED: diphenhydrAMINE HCL 25 MG CAPSULE PO PRN (10:30)
[2021-11-04] MEDS ORDERED: NALOXONE 0.4 MG/ML VIAL. IV PRN (10:30)
[2021-11-04] MEDS ORDERED: ZOLPIDEM 5 MG TABLET. PO PRN (10:30)
[2021-11-04] MEDS ORDERED: MAG HYDROX/ALUMINUM HYD/SIMETH 30 ML ORAL.SUSP PO PRN (10:30)
[2021-11-04] MEDS ORDERED: oxyCODONE/APAP 5/325 1 TAB TABLET PO PRN (10:30)
[2021-11-04] MEDS ORDERED: LACTULOSE 20 GM/30 ML SOLUTION. PO PRN (10:30)
[2021-11-04] MEDS ORDERED: CALCIUM CARBONATE 500 MG TAB.CHEW PO PRN (10:30)
[2021-11-04] MEDS ORDERED: 0.9 % SODIUM CHLORIDE 10 ML DISP.SYRIN. IV PRN (10:30)
[2021-11-04] MEDS ORDERED: diphenhydrAMINE 50 MG/ML VIAL IV PRN (10:30)
[2021-11-04] MEDS ORDERED: MORPHINE SULFATE 2 MG/ML INJ. IV PRN (10:30)
[2021-11-04] MEDS ORDERED: METOCLOPRAMIDE HCL 10 MG/2 ML VIAL. IV PRN (10:30)
[2021-11-04] MEDS ORDERED: MAGNESIUM HYDROXIDE 2,400 MG/30 ML ORAL.SUSP. PO PRN (10:30)
[2021-11-04] MEDS ORDERED: PROCHLORPERAZINE 10 MG/2 ML VIAL. ONE (10:43)
[2021-11-04] MEDS: fentaNYL PF VIAL 100 MCG/2 ML VIAL IVP PRN ×2 (10:44→11:12)
[2021-11-04] MEDS ORDERED: fentaNYL PF VIAL 100 MCG/2 ML VIAL IVP PRN (10:45)
[2021-11-04] MEDS ORDERED: PROCHLORPERAZINE 10 MG/2 ML VIAL. IVP PRN (10:45)
[2021-11-04] MEDS ORDERED: HYDROmorphone 2 MG/ML INJ. IVP PRN (10:45)
[2021-11-04] MEDS ORDERED: MORPHINE SULFATE 2 MG/ML INJ. IVP PRN (10:45)
[2021-11-04] MEDS ORDERED: IV RINGERS,LACTATED 1000ML 1,000 ML IV SCH (10:45)
--- NOTE | 2021-11-04 11:29 | OP ---
DATE OF SURGERY: 11/04/2021 PREOPERATIVE DIAGNOSES: Enlarged fibroid uterus with menorrhagia. POSTOPERATIVE DIAGNOSES: Enlarged fibroid uterus with menorrhagia. PROCEDURE: Laparoscopic-assisted vaginal hysterectomy, bilateral salpingectomy. SURGEON: Luisa Urbano MD RADIO REPAIRER: LOIS Noe ANESTHESIOLOGIST: Dr. Argueta. ANESTHESIA: General. BLOOD LOSS: 160 mL. URINE OUTPUT: 500 mL clear via Diamond catheter. INTRAVENOUS FLUIDS: 1200 mL of crystalloid. SPECIMENS: Cervix, uterus with bilateral tubes. FINDINGS: She had an enlarged bulbous uterus. Fibroids were seen, likely adenomyosis as well. Normal bilateral tubes and ovaries. Grossly normal appendix, grossly normal right upper quadrant. No significant pelvic adhesive disease. COMPLICATIONS: None. DESCRIPTION OF PROCEDURE: This patient was taken to the operating room where general anesthesia was placed. The patient was placed in dorsal lithotomy position [facility]. The patient's abdomen and vagina were both prepped and draped in the normal sterile fashion and a Diamond catheter had been inserted under sterile technique. Upon my arrival, a timeout was performed. Once everyone agreed on the patient, the site, the procedure, the antibiotics, the procedure was initiated. A bivalve speculum was placed in the patient's vagina. A single-tooth tenaculum was used to grasp the anterior lip of the cervix. A 10 mL of 0.25% bupivacaine with epinephrine was used to circumferentially inject around the cervix for both hemodissection and hemostatic purposes later. The Valtchev uterine manipulator was placed through the endocervical os, locked on the single tooth tenaculum and the bivalve speculum was then removed. Top gloves were discarded and changed. Attention was then turned to the abdomen, where a small infraumbilical skin incision was made over the existing scar that was first injected with the 0.25% width, making a small incision using a curved Anna to dissect through the subcuticular layer to the fascia. The 5 mm Visiport was used to directly enter the abdominal cavity. Opening patient pressure was 3-4 mmHg. Carbon dioxide gas was used to appropriately insufflate the abdominal cavity to maintain a pressure of 15 mmHg. Overhead lights were dimmed. The patient was placed in Trendelenburg position. At this point, the scope was used to transilluminate the abdominal wall. There were no anterior adhesions, finding an area clear of any vasculature. This was for both the right and left lower quadrant ports injecting the 0.25% with making a small incision and placing the 5 mm atraumatic trocar and under direct visualization for both. A 4-5 mL of air was placed in the trocar cuff. At this point, the camera was moved laterally to look at the umbilical port. It was also insufflated with 4-5 mL of air. Once this was done, the camera was moved back to the midline. The uterus was enlarged and somewhat difficult to manipulate due to its size, but we were able to get around it and clearly see both sides. Left tube and ovary were elevated. The ureter could clearly and easily be seen on both sides, coursing low under both ovaries. The ovaries were normal and she wished to retain them, so going above the ovary, below the tube doing a salpingectomy, the left one due to the prior tubal actually came off and was placed in the posterior cul-de-sac, the right one remained attached. We did using the LigaSure to go above the ovary, below the tube and do a salpingectomy. Both sides, the round ligaments were cauterized and cut with the LigaSure and then crossing the utero-ovarian pedicles on both sides as well, leaving both ovaries per patient request. Once this was done, the uterus was pushed cephalad. The [place] was used to elevate the bladder flap and the monopolar hook was used to cut across and create the bladder flap sharply. Once this was done, the uterine vessels were obtained on the right side and the left side, securing the uterine vasculature and the uterus did ochoa and turn white indicating a blood supply obtained. Once the bladder was assured to be down, crossing contralaterally, staying inside that going through the cardinal and broad ligaments, cauterizing and cutting on the patient's left side and then staying inside that uterine pedicle hugging posteriorly on the right side through the cardinal and broad. Once this was done and there were no adhesions posteriorly and it was free, everything was removed from the abdomen and attention was turned vaginally. The overhead lights were placed on. The patient was taken out of Trendelenburg. The legs were elevated. The single tooth and Valtchev were removed. A weighted speculum was placed in the posterior vagina. Thyroid Danielle clamps were placed on the anterior and posterior lips of the cervix respectively. A scalpel was used to make a circumferential incision in the cervix. An open Ray-Jacques 4 x 4 was used to gently push up the anterior bladder peritoneum. The cervix was elevated. The posterior cul-de-sac was sharply entered with curved Rosas scissors and a #0 Vicryl stitch was used to secure the posterior peritoneum here to the vaginal cuff. It was tagged with a curved Anna clamp and the needle was cut and passed off. The short weighted vaginal speculum was removed and replaced with the long weighted Jake speculum in the posterior cul-de-sac. At this point, curved Marty clamps x 2 were placed on the patient's left uterosacral ligament, where they were doubly clamped with curved Heaneys, cut with curved Rosas scissors and suture ligated x2 with 0 Vicryl, taking the second one through the vaginal cuff, securing uterosacral ligament to the vaginal cuff. This was done exactly the same on the patient's right side. Once this was done, I made sure that we were in anteriorly removing that Ray-Jacques and the curved Brittany ____ in the anterior cul-de-sac. The right angle clamp was taken around the remaining pedicle and the vaginal LigaSure was used to cauterize and cut the left side and then the right side as well. The uterus was very enlarged. The blood supply was obtained. I was able to get a towel clip on the back side and kind of wedge it out. Cervix, uterus and the right tube were delivered in total, the left tube was taken out of the very, very beginning when entered the posterior cul-de-sac and passed off separately. The cervix, uterus, bilateral tubes were passed off for permanent pathology. A sponge stick was used to examine the pedicles. There was some bleeding from the left side initially. A burlisher was used here with excellent results, taking the vaginal LigaSure behind it and cauterizing it. Taking the burlisher off and reexamining it, there was no more bleeding. The long Jake speculum was removed and replaced with the short weighted vaginal speculum. The anterior bladder peritoneum was grasped with a long Allis. All the counts were done prior to closing the peritoneum and they were correct the soft count, so 2-0 Vicryl was taken through the anterior bladder peritoneum, left uterosacral ligament, posterior peritoneum and right uterosacral ligament, thus closing the peritoneum in a pursestring like fashion. Once this was done, the right and left uterosacral tags were clipped and the cuff was closed in a running locked fashion, anterior to posterior and tied to the posterior cuff tag. The cuff was completely hemostatic and then all sponge, lap and needle counts had been correct x 2 by OR personnel below before going above. All gloves were discarded and changed and attention was turned back above for a second look. The legs were placed back down. The overhead lights were redimmed. The patient was placed back in Trendelenburg. The gas was reinsufflated and hemostasis was seen. Copious irrigation revealed hemostasis. Right and left pericolic gutters were clear. Right upper quadrant was normal. So at this point, Tisseel was placed over the vaginal cuff with excellent results. All 3 port sites, the 4-5 mL of air was taken out of the trocar cuff. The right and left lower quadrant ports were taken out under direct visualization. These were hemostatic. Gas was released from the infraumbilical port and then it was removed as well. All 3 port sites were closed with 4-0 nylon at the skin. They had already prior been injected with the 0.25% width. The patient was awakened from anesthesia, her Diamond catheter was removed and she has been brought to recovery room in stable condition. LUDMILA SRIVASTAVA: Lane TID: [id number]
[2021-11-04] MEDS: ONDANSETRON PF 4 MG/2 ML VIAL. IV PRN ×2 (14:15→23:59)
--- NOTE | 2021-11-04 17:35 | NUR ---
Pt. unable to void on bedpan. RN educated pt. on POC to bladder scan and straight catheterize if >500ml. Pt. verbalized understanding and is agreeable to POC. Bladder scan showed >297ml. Pt. states she "would like to try to get up to bathroom and push through nausea" at this time. RN at bedside for SBA. Pt. walked to BR with steady gait. Pt. able to void 250ml of clear, straw urine. Mesh pants, peripad, and under-pads changed at this time.
[2021-11-04] MEDS ORDERED: SCOPOLAMINE 1.5MG PATCH. TD SCH (18:00)
[2021-11-04] MEDS: HYDROcodone/APAP 5/325MG 1 TAB TABLET PO PRN (23:59)
[2021-11-05] VITALS: BP 100/53
[2021-11-05 05:00] VITALS: BP 91/46
[2021-11-05 05:51] LABS: HEMATOCRIT 35.7 % (36.0-47.0); HEMOGLOBIN 11.8 g/dL (12.0-15.5); RED BLOOD COUNT 4.51 x10^6/uL (3.50-5.40); RED CELL DISTRIBUTION WIDTH 13.8 % (11.5-14.5); WHITE BLOOD COUNT 9.1 x10^3/uL (4.0-11.0)
[2021-11-05 06:28] LABS: CALCIUM 8.5 mg/dL (8.5-10.1); CREATININE 0.7 mg/dL (0.6-1.0); GFR 111.6
[2021-11-05 07:16] VITALS: BP 98/55
[2021-11-05] MEDS: HYDROcodone/APAP 5/325MG 1 TAB TABLET PO PRN ×3 (08:30→16:36)
--- NOTE | 2021-11-05 08:35 | PDOC ---
SURGICAL PROGRESS NOTE DATE: 11/05/21 TIME: 08:20 Subjective up in bed eating breakfast. Doing well. Nausea yesterday but doing much better now. ambulating well and voiding without catheter. small amt of vb when using restroom, otherwise ok pian controlled well and not bad, no pain meds since midnight and 830am now Vital Signs Vital Signs Date Time Temp Pulse Resp B/P (MAP) Pulse Ox O2 Delivery O2 Flow Rate FiO2 11/05/21 07:16 98.0 72 18 98/55 (69) 100 Room Air 98.0 11/04/21 10:33 10.0 I&O Intake and Output 11/05/21 06:59 Intake Total 2350 ml Output Total 2210 ml Balance 140 ml Intake IV Total 2350 ml Output Urine Total 2050 ml Estimated Blood Loss 160 ml PATIENT HAS A MORTON: No General: Alert, Oriented X3, Cooperative, No acute distress HEENT: Atraumatic Heart: Regular rate Abdomen: Soft, Other (all port sites c/d/i) Extremities: No clubbing, No cyanosis, No edema, No tenderness/swelling Skin: No rashes, No breakdown Neuro: Normal speech Psych/Mental Status: Mental status NL, Mood NL Labs Laboratory Tests Test 11/04/21 06:07 11/04/21 06:15 11/05/21 05:35 Bedside Urine HCG, Qualitative Hcg negative (Negative) POC SARS CoV-2 Antigen Negative (NEGATIVE) White Blood Count 9.1 x10^3/uL (4.0-11.0) Red Blood Count 4.51 x10^6/uL (3.50-5.40) Hemoglobin 11.8 g/dL (12.0-15.5) Hematocrit 35.7 % (36.0-47.0) Mean Corpuscular Volume 79 fL (79-100) Mean Corpuscular Hemoglobin 26 pg (25-35) Mean Corpuscular Hemoglobin Concent 33 g/dL (31-37) Red Cell Distribution Width 13.8 % (11.5-14.5) Platelet Count 134 x10^3/uL (140-400) Sodium Level 137 mmol/L (136-145) Potassium Level 4.0 mmol/L (3.5-5.1) Chloride Level 105 mmol/L (98-107) Carbon Dioxide Level 27 mmol/L (21-32) Anion Gap 5 (6-14) Blood Urea Nitrogen 6 mg/dL (7-20) Creatinine 0.7 mg/dL (0.6-1.0) Estimated GFR (Cockcroft-Gault) 111.6 Glucose Level 97 mg/dL (70-99) Calcium Level 8.5 mg/dL (8.5-10.1) Laboratory Tests Test 11/05/21 05:35 White Blood Count 9.1 x10^3/uL (4.0-11.0) Red Blood Count 4.51 x10^6/uL (3.50-5.40) Hemoglobin 11.8 g/dL (12.0-15.5) Hematocrit 35.7 % (36.0-47.0) Mean Corpuscular Volume 79 fL (79-100) Mean Corpuscular Hemoglobin 26 pg (25-35) Mean Corpuscular Hemoglobin Concent 33 g/dL (31-37) Red Cell Distribution Width 13.8 % (11.5-14.5) Platelet Count 134 x10^3/uL (140-400) Sodium Level 137 mmol/L (136-145) Potassium Level 4.0 mmol/L (3.5-5.1) Chloride Level 105 mmol/L (98-107) Carbon Dioxide Level 27 mmol/L (21-32) Anion Gap 5 (6-14) Blood Urea Nitrogen 6 mg/dL (7-20) Creatinine 0.7 mg/dL (0.6-1.0) Estimated GFR (Cockcroft-Gault) 111.6 Glucose Level 97 mg/dL (70-99) Calcium Level 8.5 mg/dL (8.5-10.1) Assessment/Plan POD #1 s/p LAVH/bilateral salpingectomy routine po care d/c to home later today NPV x 6 weeks light/limited activity x 2 weeks keep scheduled appt in one week NO driving on pain meds already have pain meds filled at home ok to alternate ibuprofen as needed also now call or return sooner for any other questions or concerns not limited to but including: pain unrelieved with pain meds, increased or unexplained vb or T>100.4 Justicifation of Admission Dx: Justifications for Admission: Justification of Admission Dx: Yes AVINASH REEDER MD Nov 05, 2021 08:35
--- NOTE | 2021-11-05 08:37 | PDOC3 ---
Discharge Summary Visit Information Date of Admission: Nov 04, 2021 Date of Discharge: Nov 05, 2021 Final Diagnosis enlarged fibroid uterus and menorrhagia Brief Hospital Course Allergies Allergies Coded Allergies Type Severity Reaction Last Updated Verified No Known Drug Allergies 11/04/21 No Vital Signs Vital Signs Date Time Temp Pulse Resp B/P (MAP) Pulse Ox O2 Delivery O2 Flow Rate FiO2 11/05/21 07:16 98.0 72 18 98/55 (69) 100 Room Air 98.0 11/04/21 10:33 10.0 Lab Results Laboratory Tests Test 11/04/21 06:07 11/04/21 06:15 11/05/21 05:35 Bedside Urine HCG, Qualitative Hcg negative (Negative) POC SARS CoV-2 Antigen Negative (NEGATIVE) White Blood Count 9.1 x10^3/uL (4.0-11.0) Red Blood Count 4.51 x10^6/uL (3.50-5.40) Hemoglobin 11.8 g/dL (12.0-15.5) Hematocrit 35.7 % (36.0-47.0) Mean Corpuscular Volume 79 fL (79-100) Mean Corpuscular Hemoglobin 26 pg (25-35) Mean Corpuscular Hemoglobin Concent 33 g/dL (31-37) Red Cell Distribution Width 13.8 % (11.5-14.5) Platelet Count 134 x10^3/uL (140-400) Sodium Level 137 mmol/L (136-145) Potassium Level 4.0 mmol/L (3.5-5.1) Chloride Level 105 mmol/L (98-107) Carbon Dioxide Level 27 mmol/L (21-32) Anion Gap 5 (6-14) Blood Urea Nitrogen 6 mg/dL (7-20) Creatinine 0.7 mg/dL (0.6-1.0) Estimated GFR (Cockcroft-Gault) 111.6 Glucose Level 97 mg/dL (70-99) Calcium Level 8.5 mg/dL (8.5-10.1) Laboratory Tests Test 11/05/21 05:35 White Blood Count 9.1 x10^3/uL (4.0-11.0) Red Blood Count 4.51 x10^6/uL (3.50-5.40) Hemoglobin 11.8 g/dL (12.0-15.5) Hematocrit 35.7 % (36.0-47.0) Mean Corpuscular Volume 79 fL (79-100) Mean Corpuscular Hemoglobin 26 pg (25-35) Mean Corpuscular Hemoglobin Concent 33 g/dL (31-37) Red Cell Distribution Width 13.8 % (11.5-14.5) Platelet Count 134 x10^3/uL (140-400) Sodium Level 137 mmol/L (136-145) Potassium Level 4.0 mmol/L (3.5-5.1) Chloride Level 105 mmol/L (98-107) Carbon Dioxide Level 27 mmol/L (21-32) Anion Gap 5 (6-14) Blood Urea Nitrogen 6 mg/dL (7-20) Creatinine 0.7 mg/dL (0.6-1.0) Estimated GFR (Cockcroft-Gault) 111.6 Glucose Level 97 mg/dL (70-99) Calcium Level 8.5 mg/dL (8.5-10.1) Brief Hospital Course Ms. Hutchison is a 41 old female who presented with menorrhagia and found to have enlarged fibroid uterus. Desired definitve therapy and underwent LAVH with bilateral salpingectomy yesterday without complications. Postop day 0 she experienced nausea, but once that resolved she feels great. Tolerating PO, ambulating, voiding without catheter. She will be dc to home later today Assessment Assessment POD #1 s/p LAVH/bilateral salpingectomy routine po care d/c to home later today NPV x 6 weeks light/limited activity x 2 weeks keep scheduled appt in one week NO driving on pain meds already have pain meds filled at home ok to alternate ibuprofen as needed also now call or return sooner for any other questions or concerns not limited to but including: pain unrelieved with pain meds, increased or unexplained vb or T>100.4 Discharge Information Condition at Discharge: Stable Follow Up: Weeks Disposition/Orders: D/C to Home Scheduled Doxycycline Hyclate (Doxycycline Hyclate) 100 Mg Tablet, 1 TAB PO BID, #14 Prescribed by: Billie Shepard APRN on 08/27/21 1146 Last Taken: Unknown Dose on 11/02/21 Last Action: Reviewed on 11/04/21613 by DANILO DE LEON Medroxyprogesterone Acetate (Medroxyprogesterone Acetate) 10 Mg Tablet, 1 TAB PO DAILY for , #10 Ref 4 (Reported) Entered as Reported by: Aure Mckinnon on 10/29/21 1401 Last Taken: Unknown Dose on 10/27/21 Last Action: Reviewed on 11/04/21613 by DANILO DE LEON Patient Instructions Patient Instructions POD #1 s/p LAVH/bilateral salpingectomy routine po care d/c to home later today NPV x 6 weeks light/limited activity x 2 weeks keep scheduled appt in one week NO driving on pain meds already have pain meds filled at home ok to alternate ibuprofen as needed also now call or return sooner for any other questions or concerns not limited to but including: pain unrelieved with pain meds, increased or unexplained vb or T>100.4 Justicifation of Admission Dx: Justifications for Admission: Justification of Admission Dx: Yes AVINASH REEDER MD Nov 05, 2021 08:37
[2021-11-05 11:48] VITALS: BP 87/42
[2021-11-05 16:40] VITALS: BP 94/45
--- NOTE | 2021-11-05 18:00 | NUR ---
Dismissed per w/c to daughter in car. Home care instructions given and copy given. Already has dr mendoza.and rx at home. Reminded to rest lisa
--- NOTE | 2021-11-06 18:07 | PATHOLOGY ---
[facility] Accession Number: [id number] . 01 Material submitted: . uterus - UTERUS, CERVIX, BILATERAL FALLOPIAN TUBES . 02 Diagnosis: Uterus with attached right fallopian tube and detached left fallopian tube, laparoscopic assisted vaginal hysterectomy with bilateral salpingectomy: - Leiomyomas, uterine corpus, subserosal/intramural/submucosal, the largest measuring 3.1 cm in greatest dimension (uterine weight 283 grams). - Mild chronic cervicitis with focal squamous metaplasia. - Nabothian cyst, cervix. - Proliferative endometrium. - Adenomyosis, uterine corpus, focal. - Endometrial polyps, few, the largest measuring 1.1 cm. - Congestion of bilateral fallopian tubes with small paratubal cysts. (JPM:milena; 11/06/2021) [facility] 11/06/2021 1742 Local . 02 Comment: There is no atypia or evidence of malignancy. (JPM:milena; 11/06/2021) . 02 Electronically signed: . Juan Morel MD, Pathologist NPI- [id number] . 01 Gross description: . Fixative: Formalin Labeled: Uterus, cervix, bilateral fallopian tubes Specimen received: An intact uterus with attached cervix, and attached right fallopian tube and detached left fallopian tube . Uterus weight: 283 g (without adnexa) Uterus: Measuring 10.7 cm from fundus to cervix, 8.0 cm from anterior to posterior and 7.4 cm from cornu to cornu Serosa: Hernandez-pink, bosselated, and glistening Cervix: 3.6 x 2.6 cm Ectocervix: Hernandez-pink, centrally hemorrhagic, displaying extensive surgical artifact Cervical os: Approximately 0.9 cm, slitlike, disrupted Endocervix: Hernandez-pink, and unremarkable Endocervical canal: 3.0 cm, displaying a herringbone pattern Endometrial cavity: 5.5 x 3.0 cm Endometrium: Hernandez-pink to red, focally hemorrhagic, lush, measuring up to 0.2 cm in thickness Myometrium: Hernandez-pink, vaguely trabeculated, measuring up to 3.9 cm in thickness Lesions/abnormalities: The anterior endometrium displays 2 polypoid growths, measuring 0.7 and 1.1 cm, in greatest dimension. The posterior endometrium displays a single, hernandez-pink, polypoid growth, measuring 0.9 cm in greatest dimension. . Sectioning through the myometrium reveals multiple hernandez-white, intramural and subserosal hernandez-white, whorled nodules, ranging in size from 0.2 to 3.1 cm, in greatest dimension. Sectioning of one of the anterior intramural nodules reveals a 0.7 x 0.4 x 0.3 cm area of possible calcification. Sectioning through the remainder of the nodules reveals no areas of necrosis, calcification or hemorrhage. . Right fallopian tube: 5.5 cm in length, 0.3-0.6 cm in diameter Right fallopian tube appearance: Fimbriated, pink-purple, smooth and glistening Right fallopian tube cut surface: Sectioning reveals a stellate unremarkable lumen . Left fallopian tube: 4.2 cm in length, 0.7 cm in diameter Left fallopian tube appearance: Fimbriated, pink-purple, smooth and glistening Left fallopian tube cut surface: Sectioning reveals an unremarkable stellate lumen. . Core Maker sections are submitted as follows: A1 anterior cervix A2 posterior cervix A3 anterior endomyometrium A4 posterior endomyometrium, 1 section bisected A5 anterior polypoid growths, entirely submitted A6 additional section of anterior endometrium A7 posterior polypoid growth, entirely submitted A8 nodule with possible calcification, represented A9-A11 nodules, represented A12 right fallopian tube service liaison representative cross sections and bisected fimbriated end A13 left fallopian tube service liaison representative cross sections and bisected fimbriated end (JGG; 11/04/2021) [facility] 11/04/2021 2328 Local . 02 Pathologist provided ICD-10: D25.0, D25.1, D25.2, N72, N87.9, N80.0, N88.8, N84.0, N83.8 . 02 CPT . 470317 Specimen Comment: A courtesy copy of this report has been sent to [phone] Specimen Comment: Report sent to Specimen Comment: A duplicate report has been generated due to demographic updates. Performed at: 01 [facility] [address] [id number] MD Kelechi Sandoval MD Phone: [phone] Performed at: 02 [facility] [address] [place], [place] [id number] MD Juan Morel MD Phone: [phone]
== END 2021-11-05 18:00 | disposition home or self-care (01) ==
LOC: SURG 05:50 → 3 NORTH 10:30 → 3 SO LND 11:15
PROVIDERS: ADMIT Obstetrics & Gynecology; ATTEND Obstetrics & Gynecology
DX: N92.0 Excessive and frequent menstruation with regular cycle (principal); Z20.822 Contact with and (suspected) exposure to COVID-19; D25.9 Leiomyoma of uterus, unspecified; N80.0 Endometriosis of uterus
CPT/HCPCS: 36415; 58554; 80048; 81025; 85027; 86850; 86900; 86901; 96374; 96375; 96376; A4314; A4364; A4930; A6219; G0378; G0379; J0690; J0780; J1100; J1170; J1885; J2250; J2370; J2405; J2704; J2710; J2765; J3010; J3480; J3490; A4351; A4657